=== PATIENT | male | born 1985 | race Caucasian/White ===

== ENCOUNTER 2020-12-03 11:50 | Day surgery (SDC) | payer BC, SELFPAY ==
[2020-12-03] VITALS (9 sets, daily range): BP systolic 107–130; BP diastolic 57–86; PULSE 50–68; RESP 12–19; TEMP 36.5–36.8; O2SAT 97–100; BMI 36.6
--- NOTE | ~2020-12-03 | XR_ITS ---
EXAMINATION: XR retrograde pyelogram LT EXAM DATE: 12/03/2020 13:30 INDICATION: Left ureteral stone extraction. TECHNIQUE: Fluoroscopy used during XR retrograde pyelogram LT performed by Dr. Abril Quinonez MD, urologist. The radiologist Vijay Tellez M.D. dictating this report of the image(s) available was not present for the procedure. Total fluoroscopic time of 15 seconds. The DAP for this procedure was 47 5 radcm2. A total of 58 images sent to PACS from the exam. Cine run(s) available for review. FINDINGS: Left ureter was cannulated, injected. Mild left hydroureter. Reportedly left ureteral ston e was extracted. Correlate with procedure note. IMPRESSION: Fluoroscopy used during left ureteral stone extraction. Reviewed, dictated and finalized at location A.
--- NOTE | 2020-12-03 10:30 | WPDHPUPDATE1 ---
History and Physical Update Update Date/Time: 12/03/20 10:30 History and Physical has been reviewed, including an updated exam of the patient. There are NO changes in the patient's condition. Risks, benefits, and alternatives have been discussed and questions answered. Patient agrees to proceed with procedure.
--- NOTE | 2020-12-03 12:10 | WPDANESEPPF ---
Anes - Initial Pre Proc Eval Procedure: Operation Date: 12/03/20 13:00 Proposed Procedures p Cystoscopy, Left Ureteroscopy with Stone Extraction, Possible Left Ureteral Stent Placement - Abril Quinonez MD s Possible Holmium Laser Lithotripsy - Abril Quinonez MD Date/Time: 12/03/20 12:10 Surgeon: Abril Quinonez MD Pre Op Diagnosis: left ureteral stone Patient Data Age: 35 Gender: M Height: Weight: Allergies Allergy/AdvReac Type Severity Reaction Status Date / Time No Known Allergies Allergy Mild Verified 12/03/20 11:49 Home Medications Medication Instructions Recorded Confirmed Type Flomax 12/03/20 History bupropion HCl [Wellbutrin SR] 150 mg PO DAILY 12/03/20 12/03/20 History Patient hx anesthesia problems: post op nausea/vomiting Family hx anesthesia problems: none PMFSH Past Medical History Medical History Anxiety LAYLA (obstructive sleep apnea) Rheumatoid arthritis Anes - Eval Final PreProcedure Day of Procedure 12/03/20 12:10 Patient weight: obese Heart: regular rate and rhythm Lungs: clear to auscultation Airway: Mallampati scale class II Neurological: alert and oriented Last oral intake: >/= 8 hours ASA classification: III Emergent: no Anesthetic plan: proceed Anesthesia type and monitoring: general LMA and standard monitoring Informed Consent: The patient's anesthetic plan and its attendant risks and benefits were discussed with the patient/family/POA. Questions were solicited and answers provided to the satisfaction of the patient/family/POA.
[2020-12-03] MEDS: LACTATED RINGERS 1,000 ML 30 ML IV CONT ×2 (12:12→14:15)
[2020-12-03] MEDS: ACETAMINOPHEN 500 MG TABLET 1000 MG PO (12:13)
[2020-12-03] MEDS: fentaNYL CITRATE INJ (*CRX) 100 MCG/2 ML VIAL 50 MCG IV PUSH (12:25)
[2020-12-03] MEDS: SCOPOLAMINE 1.5 MG PATCH TRANSDERM (12:26)
[2020-12-03] MEDS: ceFAZolin 2 GM/D5W 50 ML 2 GM/50 ML BAG IVPB (13:05)
[2020-12-03] MEDS: LIDOCAINE HCL 2% GEL UROJET 10 ML PKG MUCOUS MEM (13:20)
--- NOTE | 2020-12-03 13:35 | W.PM.PROC2 ---
Procedure Note - Detailed Date of Procedure 12/03/20 Pre-op Diagnosis left ureteral stone Post-op Diagnosis same Procedure Performed Cystoscopy, left ureteroscopy, stone extraction, left retrograde pyelogram Surgeon Abril Quinonez MD Anesthesia general Findings Stone removed from left distal ureter Description of Procedure Informed consent was obtained. Patient taken the operating. He was given preoperative IV antibiotics. He was just anesthesia. He was prepped draped normal sterile fashion. We inserted a 22 F scope through the urethra into the bladder inspected the bladder and there were no mucosal abnormalities. We then identified the left ureteral orifice was dilated with a 10 coaxial dilator we advanced a semi rigid scope into the distal ureter encountered the stone at the UVJ. He was grasped with Zero tip basket removed. This point a retrograde pyelogram was performed that showed minimal left hydronephrosis and efflux down the ureter into the bladder. Given that there was minimal manipulation, we elected not to place a ureteral stent. The bladder was emptied. 10cc of lidocaine were instilled patient was awakened taken PACU in stable condition Drains No Packing No Pathology yes Complications No immediate complications Condition stable Disposition PACU
[2020-12-03] MEDS: fentaNYL CITRATE INJ (*CRX) 100 MCG/2 ML VIAL 25 MCG IV PUSH ×8 (14:08→14:35)
[2020-12-03] MEDS: oxyCODONE HCL (*CRX) 5 MG TAB IR PO (15:02)
== END 2020-12-03 15:35 | disposition home or self-care (01) ==
PROVIDERS: PCP Physician Assistant; Visit Provider Urology
PROC: (CPT 52352; principal; 2020-12-03 13:00)
DX: N20.1 Calculus of ureter (principal); G47.33 Obstructive sleep apnea (adult) (pediatric); M06.9 Rheumatoid arthritis, unspecified; F41.9 Anxiety disorder, unspecified; E66.9 Obesity, unspecified; Z68.36 Body mass index [BMI] 36.0-36.9, adult
CPT/HCPCS: 52332; 52352; 74420; 82365; 88300; A9270; C1769; J0690; J1100; J2250; J2405; J2704; J3010; J7120; Q9966

== ENCOUNTER 2020-12-31 10:22 | Outpatient (CLI) | payer BC, SELFPAY ==
--- NOTE | ~2020-12-31 | XR_ITS ---
EXAMINATION: XR abdomen/kub 1V EXAM DATE: 12/31/2020 10:44 INDICATION: Left ureteral stone. Left kidney stone removed 3-4 weeks ago. TECHNIQUE: Frontal projection of the upper abdomen, frontal projection lower abdomen/pelvis for inter pretation. There is no prior study for comparison. FINDINGS: There is expected amount of colonic stool and gas. No small bowel dilation, nonobstructiv e bowel gas pattern. There are no suspicious calcifications identified. There is no organomegaly suspected. There is mild to moderate symmetric bilateral hip primary osteoarthritis. IMPRESSION: Unremarkable abdomen x-ray exam. Reviewed, dictated and finalized at location B.
--- NOTE | ~2020-12-31 | US_ITS ---
EXAMINATION: US retroperitoneal comp EXAM DATE: 12/31/2020 10:38 INDICATION: Left ureteral stone . TECHNIQUE: Multiple grayscale and Doppler images of the kidneys were obtained (by a technologist who performed the scan) and subsequently reviewed. There is no prior study for comparison. FINDINGS: Right kidney: There is normal contour and echogenicity. It measures 11.1 x 6.1 x 6.4 centimeters. T here are no focal renal lesions identified. There is no hydronephrosis. Left kidney: There is normal contour and echogenicity. It measures 10.8 x 6.4 x 5.3 centimeters. Th ere are no focal renal lesions identified. There is no hydronephrosis. Bladder unremarkable. IMPRESSION: Sonographically unremarkable kidneys. Reviewed, dictated and finalized at location B.
== END 2020-12-31 10:23 ==
PROVIDERS: Visit Provider Urology
DX: N20.1 Calculus of ureter (principal)
CPT/HCPCS: 74018; 76770

== ENCOUNTER → 2021-01-29 00:35 | Outpatient (CLI) | payer BC, SELFPAY ==
[2021-01-29 21:27] LABS: SARS-CoV-2 RNA PCR Negative
== END ==
PROVIDERS: PCP Physician Assistant; Visit Provider Surgery
DX: Z01.812 Encounter for preprocedural laboratory examination (principal); Z20.822 Contact with and (suspected) exposure to COVID-19
CPT/HCPCS: C9803; U0003; U0005

== ENCOUNTER 2021-02-02 01:31 | Day surgery (SDC) | payer BC, SELFPAY ==
[2021-01-31 09:06] VITALS: BMI 35.2
[2021-02-02 12:40] VITALS: BP 123/83; PULSE 69; RESP 20; TEMP 36.4; O2SAT 99
[2021-02-02] MEDS: ACETAMINOPHEN 500 MG TABLET 1000 MG PO (12:40)
--- NOTE | 2021-02-02 12:55 | WPDHPUPDATE1 ---
History and Physical Update Update Date/Time: 02/02/21 12:55 History and Physical has been reviewed, including an updated exam of the patient. There are NO changes in the patient's condition. Risks, benefits, and alternatives have been discussed and questions answered. Patient agrees to proceed with procedure.
[2021-02-02] MEDS: LACTATED RINGERS 1,000 ML 30 ML IV CONT ×2 (13:10→15:02)
[2021-02-02] MEDS: KETOROLAC 15 MG/ML VIAL (*BKC) IV PUSH (13:12)
--- NOTE | 2021-02-02 13:44 | WPDANESEPPF ---
Anes - Initial Pre Proc Eval Procedure: Operation Date: 02/02/21 12:30 Proposed Procedures p Repair Incarcerated Umbilical Hernia - Riley Raman MD Date/Time: 02/02/21 13:44 Surgeon: Riley Raman MD Pre Op Diagnosis: incarcerated umbilical hernia Patient Data Age: 35 Gender: M Height: 1.7 m Weight: 101.6 kg Last Vital Signs Temp 36.4 C 02/02/21 12:40 Pulse 69 02/02/21 12:40 Resp 20 02/02/21 12:40 BP 123/83 02/02/21 12:40 Pulse Ox 99 02/02/21 12:40 Allergies Allergy/AdvReac Type Severity Reaction Status Date / Time adalimumab [From Humira] AdvReac Mild Itching Verified 01/31/21 08:57 Home Medications Medication Instructions Recorded Confirmed Type bupropion HCl [Wellbutrin SR] 150 mg PO DAILY 12/03/20 02/02/21 History cetirizine 10 mg tablet 10 mg PO DAILY 01/14/21 02/02/21 History phentermine 37.5 mg capsule 37.5 mg PO DAILY 01/14/21 02/02/21 History Patient hx anesthesia problems: none Family hx anesthesia problems: none PMFSH Past Medical History Medical History Anxiety Depression LAYLA (obstructive sleep apnea) Rheumatoid arthritis Vertigo Surgical History Surgical History History of back surgery Status post ear surgery Family History Family History Father Arthritis Mother Alcoholism Hypertension Rheumatoid arthritis Lupus Sibling Lung disease Unknown Allergy Social History Social History Smoking status: Never smoker Alcohol intake: current Drinks per week: 4 Substance use: never Substance use type: does not use Living arrangements: with family Spiritual care concerns: No Anes - Eval Final PreProcedure Day of Procedure 02/02/21 13:44 Patient weight: obese Heart: regular rate and rhythm Lungs: clear to auscultation Airway: Mallampati scale class 1 Neurological: alert and oriented Last oral intake: >/= 8 hours ASA classification: III Emergent: no Anesthetic plan: proceed Anesthesia type and monitoring: general LMA and standard monitoring Informed Consent: The patient's anesthetic plan and its attendant risks and benefits were discussed with the patient/family/POA. Questions were solicited and answers provided to the satisfaction of the patient/family/POA.
[2021-02-02] MEDS: SCOPOLAMINE 1.5 MG PATCH TRANSDERM (13:52)
[2021-02-02] MEDS: ceFAZolin 2 GM/D5W 50 ML 2 GM/50 ML BAG IVPB (14:02)
[2021-02-02] MEDS: BUPIVACAINE/EPINEPHRINE 0.5% 10 ML VIAL 30 ML INFILTRATE (14:19)
--- NOTE | 2021-02-02 14:57 | W.PM.PROC2 ---
Procedure Note - Detailed Date of Procedure 02/02/21 Pre-op Diagnosis incarcerated umbilical hernia Post-op Diagnosis same Procedure Performed Repair incarcerated umbilical hernia with 6.6 cm Parietex underlay mesh Surgeon Riley Raman MD [employer] Kareen SCHUSTER Anesthesia MAC and local (0.5% Marcaine with epinephrine) Indications Patient is a 35-year-old man who has an umbilical bulge that is been tender. Was more recently particularly uncomfortable. I partially reduced it in the office. He is taken to surgery now for an incarcerated umbilical hernia. Findings Umbilical hernia with a 2 cm defect. Description of Procedure Patient was taken to surgery and IV sedation was administered. The abdomen was prepped and draped. The proposed incision was marked along the upper margin of the umbilicus. Local anesthesia was infiltrated in the area of the anticipated incision and the deeper subcutaneous tissues. Incision was made dissection through the skin was carried out. The hernia sac was easily found. It was dissected free from the surrounding subcutaneous. I dissected down to the neck of the hernia. I then dissected the hernia sac off of the umbilical skin. I dissected all around the neck of the hernia. Additional local was infiltrated into the neck of the hernia as well as the fascia around the neck. I then divided the hernia sac at the neck and excised it. Cautery was used for hemostasis. I placed a finger in the defect and checked for any adhesions. None were found. A 6.6 cm Parietex chippewa-cree was chosen. It was placed in the defect and centered so that it was symmetric. 0 Ethibond was used and cranial and caudal transfascial sutures were placed. Each of these sutures were placed in such a fashion that when tied, they would draw the edges of the hernia defect wards 1 another. This had the desired effect. I then placed a right and left lateral transfascial sutures to secure the mesh in these directions. Finally the defect was closed with a [id number] mattress suture of 0 Ethibond. This also incorporated bit of mesh. The repair looked good. I infiltrated additional local all around the site of the repair. I then sutured the umbilical skin to the fascia with 3-0 Vicryl suture. Some subcutaneous 3-0 Vicryl sutures were used to close space. 4-0 Vicryl subcuticular interrupted skin stitches were placed. Finally a running 4-0 Monocryl skin suture was placed. Wound was dressed with Exofin surgical adhesive. The patient was awakened and taken to recovery in good condition. Sponge and needle counts were correct x2. Estimated Blood Loss 5 Drains No Packing No Pathology none sent Complications No immediate complications Condition stable Disposition same day
[2021-02-02 15:02] VITALS: BP 117/67; PULSE 70; RESP 14; O2SAT 99
[2021-02-02 15:30] VITALS: BP 108/67; PULSE 63; O2SAT 99
[2021-02-02] MEDS: fentaNYL CITRATE INJ (*CRX) 100 MCG/2 ML VIAL 25 MCG IV PUSH ×4 (15:31→15:46)
[2021-02-02] MEDS: oxyCODONE HCL (*CRX) 5 MG TAB IR PO (15:57)
[2021-02-02 16:00] VITALS: BP 116/79; PULSE 62
[2021-02-02 16:30] VITALS: BP 120/81; PULSE 58
== END 2021-02-02 16:45 | disposition home or self-care (01) ==
PROVIDERS: PCP Physician Assistant; Visit Provider Surgery
PROC: (CPT 49587; principal; 2021-02-02 12:30)
DX: K42.0 Umbilical hernia with obstruction, without gangrene (principal); M06.9 Rheumatoid arthritis, unspecified; G47.33 Obstructive sleep apnea (adult) (pediatric); F41.8 Other specified anxiety disorders; E66.9 Obesity, unspecified; Z68.35 Body mass index [BMI] 35.0-35.9, adult
CPT/HCPCS: 49587; A9270; C1781; C9803; J0690; J1885; J2250; J2704; J3010; J7120; U0003; U0005

== ENCOUNTER 2021-03-01 19:34 | Emergency (ER) | payer BC, SELFPAY ==
--- NOTE | ~2021-03-01 | XR_ITS ---
XR foot RT min 3V 03/01/2021 19:59 INDICATION: Right foot pain PROCEDURE: 4 views right foot COMPARISON: No prior studies for comparison. FINDINGS: Fracture, dislocation or subluxation is not identified. Lisfranc joint intact. The soft tis sues appear within normal limits. No foreign bodies are identified. IMPRESSION: 1: NO ACUTE BONE OR JOINT ABNORMALITY IDENTIFIED. Reviewed, dictated and finalized at location A.
[2021-03-01 20:14] VITALS: BP 128/88; PULSE 98; RESP 15; TEMP 37.5; O2SAT 98
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
[2021-03-01 23:12] VITALS: BP 121/91; PULSE 86; RESP 16; O2SAT 98
== END 2021-03-01 22:56 | disposition home or self-care (01) ==
LOC: ANHED 22:48
PROVIDERS: Emergency Provider Emergency Medicine; PCP Physician Assistant
DX: S93.401A Sprain of unspecified ligament of right ankle, initial encounter (principal); F41.9 Anxiety disorder, unspecified; F32.9 Major depressive disorder, single episode, unspecified; G47.33 Obstructive sleep apnea (adult) (pediatric); M06.9 Rheumatoid arthritis, unspecified; V43.52XA Car driver injured in collision with other type car in traffic accident, initial encounter; Y92.410 Unspecified street and highway as the place of occurrence of the external cause
CPT/HCPCS: 73630; 99283

== ENCOUNTER 2021-04-04 19:11 | Emergency (ER) | payer BC, SELFPAY ==
[2021-04-04 19:19] VITALS: BP 126/90; PULSE 82; RESP 18; TEMP 36.6; O2SAT 98
--- NOTE | 2021-04-04 19:22 | ED.EAR ---
HPI - Ear Problem General Chief complaint: Ear Stated complaint: Rt Ear Time Seen by Provider: 04/04/21 19:22 Source: patient and RN notes reviewed Mode of arrival: ambulatory Limitations: no limitations History of Present Illness HPI Narrative: Riley is a 36-year-old male patient who ambulated into the [facility]. Patient states he is having ringing in his right ear. Started yesterday has gotten worse today. Patient states he was treated for a sinus infection 3 weeks ago with an antibiotic and prednisone. Patient states a month before that he was treated with all amoxicillin for sinus infection. Patient states he has a long history of sinus infections and ear infections. Patient denies any injury to the ear. Patient has taken no medicines or [id number]-xvodnbe treatment for his ringing of the ear. Patient uses Zyrtec every day. Patient states he has not been using his Flonase for the last several months. MD Complaint: other Related Data Home Medications Medication Instructions Recorded Confirmed bupropion HCl [Wellbutrin SR] 150 mg PO DAILY 12/03/20 04/04/21 cetirizine [Zyrtec] 10 mg PO DAILY 04/04/21 04/04/21 phentermine 37.5 mg PO DAILY 04/04/21 04/04/21 Allergies Allergy/AdvReac Type Severity Reaction Status Date / Time adalimumab [From Humira] AdvReac Mild Itching Verified 04/04/21 19:32 Review of Systems Review of Systems: CONSTITUTIONAL: Denies body aches, fever, chills, or sweats. EYES: Denies visual changes, redness, or discharge. ENT: Denies rhinorrhea, +Congestion, denies sore throat, or otalgia. + ringing in right ear CARDIOVASCULAR: Denies chest pain, palpitations, or edema. RESPIRATORY: Denies cough or dyspnea. GASTROINTESTINAL: Denies abdominal pain, nausea, vomiting, or diarrhea. GENITOURINARY: Denies dysuria or hematuria. SKIN: Denies rash, itching, or wounds. MUSCULOSKELETAL: Denies back pain, joint pain, or myalgia. NEUROLOGIC: Denies headache, numbness, tingling, or weakness. PSYCH: Denies depression or anxiety. [facility] Past Medical History Medical History Anxiety Depression LAYLA (obstructive sleep apnea) Rheumatoid arthritis Vertigo Surgical History Surgical History H/O umbilical hernia repair 02/02/21 Repair incarcerated umbilical hernia with 6.6 cm Parietex underlay mesh History of back surgery Status post ear surgery Family History Family History Father Arthritis Mother Alcoholism Hypertension Rheumatoid arthritis Lupus Sibling Lung disease Unknown Allergy Social History Social History Smoking status: Never smoker Alcohol intake: current Drinks per week: 4 Substance use: never Substance use type: does not use Spiritual care concerns: No Comments At time of signature, I have reviewed and agree with nursing past medical, surgical, social and family history unless otherwise noted. Please see nursing chart for further information. There is no relevant family history pertinent to the presenting complaint Exam Narrative: GENERAL: Well-appearing, well-nourished, and in no acute distress. HEAD: Normocephalic, atraumatic. EYES: EOMI. No redness or drainage. Conjunctivae normal. ENT: Mucous membranes pink and moist. clear rhinorrhea. TMs bilaterally opaque, minimal bulging, fluid-filled. Throat normal. Uvula midline. NECK: Normal AROM. Supple. No lymphadenopathy. MUSCULOSKELETAL: No bony tenderness. EXTREMITIES: Normal range of motion. No edema. SKIN: Warm, dry, no rash. Capillary refill normal. Normal skin turgor. NEURO: No focal deficits. Alert and oriented x3. Gait steady. PSYCH: Normal affect. No signs of depression or anxiety. Course Vital Signs Vital signs: Vital Signs Temperature 36.6 C 04/04/21 19:19 Pulse Ra
== END 2021-04-04 19:48 | disposition home or self-care (01) ==
PROVIDERS: Emergency Provider Nurse Practitioner Family; PCP Physician Assistant
DX: H93.11 Tinnitus, right ear (principal); H65.23 Chronic serous otitis media, bilateral; R03.0 Elevated blood-pressure reading, without diagnosis of hypertension; F41.9 Anxiety disorder, unspecified; F32.9 Major depressive disorder, single episode, unspecified; G47.33 Obstructive sleep apnea (adult) (pediatric); M06.9 Rheumatoid arthritis, unspecified; Z86.16 Personal history of COVID-19; Z98.1 Arthrodesis status
CPT/HCPCS: 99211; G0463

== ENCOUNTER 2021-04-08 13:50 | Outpatient (CLI) | payer BC, SELFPAY ==
--- NOTE | ~2021-04-08 | CT_ITS ---
EXAMINATION: CT IAC/mastoids BI wo/w con DATE: 04/08/2021 14:39 INDICATION: Sudden right-sided hearing loss. Right-sided tinnitus. TECHNIQUE: Computed tomography (CT) of the temporal bones was performed without and with 75 mL Omnipa que 350 intravenous contrast. Automated exposure control and iterative reconstruction technique were employed. The dose-length product was 620.88 mGy-cm. COMPARISON: Head CT 03/16/2018 FINDINGS: RIGHT TEMPORAL BONE: The internal auditory canal, cochlea, vestibule, semicircular canals, vestibular aqueduct, carotid ca nal, jugular bulb, facial nerve course, ossicles, Prussak space, scutum, tympanic membrane, mastoid a ir cells, and external auditory canal are normal. There is a small effusion of the petrous apex. LEFT TEMPORAL BONE: The internal auditory canal, cochlea, vestibules, semicircular canals, vestibular aqueduct, carotid c anal, jugular bulb, facial nerve course, and ossicles are normal. There is a 3 mm opacity in Prussak space. Scutum is normal. The mastoid air cells and external auditory canal are normal. IMPRESSION: 1. Normal right temporal bone. 3. 3 mm opacity in left Prussak space. No erosions of bone to suggest chronic otitis media or cholest eatoma. Reviewed, dictated and finalized at location A. IMPRESSION: 1. Normal right temporal bone. 3. 3 mm opacity in left Prussak space. No erosions of bone to suggest chronic o titis media or cholesteatoma.
== END 2021-04-08 13:51 ==
PROVIDERS: PCP Physician Assistant; Visit Provider Otolaryngology
DX: H91.21 Sudden idiopathic hearing loss, right ear (principal)
CPT/HCPCS: 70482; Q9967

== ENCOUNTER 2022-06-07 11:20 | Emergency (ER) | payer BC, SELFPAY ==
[2022-06-07] VITALS (9 sets, daily range): BP systolic 123–144; BP diastolic 82–105; PULSE 59–71; RESP 10–20; TEMP 36.1; O2SAT 95–100
--- NOTE | ~2022-06-07 | CT_ITS ---
EXAMINATION: CTA brain carotid DATE: 06/07/2022 12:47 INDICATION: Dizziness. Right neck pain. TECHNIQUE: Computed tomographic angiography (CTA) of the head was performed without and with 100 mL O mnipaque-350 intravenous contrast. CTA of the neck was performed with intravenous contrast. Automated exposure control and iterative reconstruction technique were employed. The dose-length product was 1 669.96 mGy-cm. Maximum intensity projection and volume rendered 3D-reconstructions were created by raheel panda technologist on a separate workstation. COMPARISON: Head CT 03/16/2018 FINDINGS: HEAD CTA: There is no intracranial hemorrhage, acute infarction, or abnormal intracranial mass lesion . The ventricles are normal in size. There is mild mucosal thickening in the paranasal sinuses. The m astoid air cells are normal. The orbits are normal. The vertebral arteries are codominant. There is n o significant stenosis of basilar artery or the posterior cerebral arteries. The posterior communicat ing arteries are normal. There is no significant stenosis of the intracranial internal carotid arteri es or anterior or middle cerebral arteries. Anterior communicating artery is normal. There is no aneu rysm. NECK CTA: A calcified mediastinal lymph node is consistent with old granulomatous disease. There is n o significant stenosis of the vertebral arteries. There is minimal plaque in the proximal internal ca rotid arteries. There is 0% stenosis of the proximal right internal carotid artery relative to normal distal artery lumen diameter (NASCET criteria). There is 0% stenosis of the proximal left internal c arotid artery relative to normal distal artery lumen diameter. There are changes of posterior fusion procedure at C6-C7. There is a chronic compression fracture of C7 vertebral body. There is an old fra cture of C6 spinous process. IMPRESSION: 1. Normal brain. No aneurysm or significant intracranial arterial stenosis. 2. 0% stenosis of the proximal internal carotid arteries relative to normal distal artery lumen diame ters (NASCET criteria). Reviewed, dictated and finalized at location A. [facility] IMPRESSION: 1. Normal brain. No aneurysm or significant intracranial arterial stenosis. 2. 0% stenosis of the proximal internal carotid arteries relative to normal dis betty artery lumen diameters (NASCET criteria).
--- NOTE | ~2022-06-07 | XR_ITS ---
Portable chest x-ray Comparison: 06/25/2010 Clinical History: Near syncope Findings: Lungs are clear, without focal consolidation or pleural effusion. Cardiomediastinal silho uette is stable. Cervical spine hardware is probably unchanged from prior exam. Impression: Clear lungs. Reviewed, dictated and finalized at location [] RNET RESEARCHER Impression: Clear lungs.
--- NOTE | 2022-06-07 11:23 | ECG_ITS ---
Measurements Intervals Maxwell Rate: 57 P: 52 DC: 167 QRS: -2 QRSD: 113 T: 19 QT: 400 QTc: 391 Interpretive Statements SINUS BRADYCARDIA MODERATE INTRAVENTRICULAR CONDUCTION DELAY [110+ ms QRS DURATION] MINIMAL VOLTAGE CRITERIA FOR LVH, CONSIDER NORMAL VARIANT [MEETS CRITERIA IN ONE OF: R(aVL), S(V1), R(V5), R(V5/V6)+S(V1)] NO PREVIOUS ECG AVAILABLE FOR COMPARISON Electronically Signed On 06-07-2022 13:24:13 DRILLER OPERATOR by Sandee Kelly M.D.
[2022-06-07 11:57] LABS: Basophils Percent Auto 0.8 % (0.2-1.2); Eosinophils Absolute Auto 0.1 K/mm3 (0-0.3); Eosinophils Percent Auto 1.2 % (0-4.4); Hemoglobin 15.5 g/dL (14.0-18.0); Immature Granulocyte Absolute 0.01 K/mm3 (0.00-0.031); Immature Granulocyte Percent A 0.2 % (0-0.5); Lymphocytes Absolute Auto 1.47 K/mm3 (0.9-3.2); Lymphocytes Percent Auto 28.9 % (18.3-44.2); Mean Corpuscular HGB Conc 34.4 g/dl (32-36); Mean Corpuscular Hemoglobin 31.7 pg (26-34); Mean Platelet Volume 9.3 fl (7.4-10.4); Monocytes Absolute Auto 0.5 K/mm3 (0.1-0.6); Monocytes Percent Auto 9.8 % (2.6-8.5); Neutrophils Percent Auto 59.1 % (45.5-73.1); Platelet Count Result 238 k/mm3 (150-375); Red Blood Count 4.89 M/mm3 (4.6-6.20); Red Cell Distribution Width 12.7 % (11.5-14.5); White Blood Count 5.1 K/mm3 (4.5-10.0)
--- NOTE | 2022-06-07 11:58 | ED.DIZZY ---
HPI - Dizziness General Chief Complaint: Dizziness Stated Complaint: dizzy, syncope Time Seen by Provider: 06/07/22 11:56 Source: patient Mode of arrival: ambulatory Limitations: no limitations History of Present Illness HPI Narrative: Patient is a 37-year-old male presenting for evaluation of dizziness, lightheadedness, near syncopal events. Patient states that over the past week, he has had many near syncopal events where he feels unsteady. Patient states he has not lost consciousness. He reports symptoms are worsened with going from a sitting to standing position or head movements. Patient endorses a dizziness sensation, denies a spinning sensation. He denies headache pain, vision changes, focal weakness or numbness. Patient's states that he seems to be more slow to respond to questions but denies confusion. No recent illnesses or medication changes. No fever, chills, nausea, vomiting. No recent falls or injury. Patient denies any current chest pain or abdominal pain. Patient states that the dizziness usually is worsened in the afternoons, but has been significant throughout the day today which is what prompted his visit to the emergency department. Patient denies recent COVID or influenza. Denies significant sinus congestion but endorses a history of chronic sinusitis. Denies ear pain or fullness. Related Data Home Medications Medication Instructions Recorded Confirmed bupropion HCl 150 mg tablet,12 hr 150 mg PO DAILY 12/03/20 04/04/21 sustained-release (Wellbutrin SR) cetirizine 10 mg tablet (Zyrtec) 10 mg PO DAILY 04/04/21 04/04/21 phentermine 37.5 mg tablet 37.5 mg PO DAILY 04/04/21 04/04/21 Allergies Allergy/AdvReac Type Severity Reaction Status Date / Time adalimumab [From Humira] AdvReac Mild Itching Verified 04/04/21 19:32 Review of Systems Review of Systems: CONSTITUTIONAL: Denies fever, chills, or sweats. ENT: Denies rhinorrhea, congestion, sore throat, or otalgia. CARDIOVASCULAR: Denies chest pain, palpitations, or edema. RESPIRATORY: Denies cough or dyspnea. GASTROINTESTINAL: Denies abdominal pain, nausea, vomiting, or diarrhea. GENITOURINARY: Denies dysuria or hematuria. SKIN: Denies rash or itching. MUSCULOSKELETAL: Denies back pain, joint pain, or myalgia. NEUROLOGIC: Denies headache, numbness, or weakness.Reports dizziness and lightheadedness. [facility] Past Medical History Medical History Anxiety Depression LAYLA (obstructive sleep apnea) Rheumatoid arthritis Vertigo Surgical History Surgical History H/O umbilical hernia repair 02/02/21 Repair incarcerated umbilical hernia with 6.6 cm Parietex underlay mesh History of back surgery Status post ear surgery Family History Family History Father Arthritis Mother Alcoholism Hypertension Rheumatoid arthritis Lupus Sibling Lung disease Unknown Allergy Social History Social History Smoking status: Never smoker Alcohol intake: current Drinks per week: 4 Substance use: never Substance use type: does not use Spiritual care concerns: No Exam Narrative: GENERAL: Awake, alert, conversant HEAD: Normocephalic, atraumatic. EYES: PERRLA and EOMI. ENT: Nares clear, no rhinorrhea or epistaxis. Mucous membranes moist. NECK: Supple. CHEST: No respiratory distress, breathing even and non labored HEART: Regular rate, sinus rhythm ABDOMEN:Non distended, non tender EXTREMITIES: Normal range of motion. No edema. SKIN: Warm, dry, no rash. NEURO:No focal deficits. Alert and oriented x3. Finger to nose intact bilaterally. EOMs intact without nystagmus. No facial droop/asymmetry noted bilaterally. Grimace intact. Intact sensation in face. Hearing intact bilaterally. Shoulder shrug intact. Strength 5/5 bilateral
[2022-06-07 12:08] LABS: Alanine Aminotransferase 55 U/L (6-50); Albumin Level 4.5 g/dL (3.5-5.1); Alkaline Phosphatase 80 U/L (38-126); Anion Gap 8 mmol/L (8-16); Aspartate Amino Transferase 47 U/L (17-59); Bilirubin,Total 0.5 mg/dL (0.2-1.3); Blood Urea Nitrogen 17 mg/dL (9-20); Carbon Dioxide 24 mmol/L (22-30); Chloride 108 mmol/L (98-107); Estimated CRCL calculation 123 ml/min; Estimated Glomerular Filt Rate > 60; Glucose 94 mg/dL (65-110); Potassium 3.8 mmol/L (3.4-5.0); Sodium 140 mmol/L (137-145)
[2022-06-07 12:20] LABS: Troponin I < 0.012 ng/mL (0.000-0.034)
[2022-06-07] MEDS: MECLIZINE HCL 25 MG TABLET PO (12:30)
[2022-06-07] MEDS: SODIUM CHLORIDE 0.9% IV 1,000 ML 999 ML IV CONT (12:30)
[2022-06-07 13:08] LABS: Add Urine Microscopic? NO; Appearance Urine Clear (Clear); Bilirubin Urine Negative (Negative); Blood Urine Negative (Negative); Color Urine Light Yellow (Yellow); Glucose Urine UA Negative (Negative); Ketones Urine Negative (Negative); Leukocyte Esterase Ur Negative LEU/UL (Negative); Nitrate Urine Negative (Negative); Protein Urine Negative (Negative); Urobilinogen Urine 0.2 mg/dL (<2.0)
[2022-06-07 13:29] LABS: Amphetamine Screen Urine Negative (Negative); Barbiturate Screen Urine Negative (Negative); Benzodiazepines Screen Urine Negative (Negative); Cannabinoid Screen Urine Negative (Negative); Cocaine Screen Urine Negative (Negative); Methadone Screen Urine Negative (Negative); Opiate Screen Urine Negative (Negative); Phencyclidine Screen Urine Negative (Negative)
== END 2022-06-07 14:21 | disposition home or self-care (01) ==
PROVIDERS: Emergency Medicine; Emergency Provider Emergency Medicine; PCP Physician Assistant
DX: H81.10 Benign paroxysmal vertigo, unspecified ear (principal); M06.9 Rheumatoid arthritis, unspecified; G47.33 Obstructive sleep apnea (adult) (pediatric); F41.9 Anxiety disorder, unspecified; F32.A Depression, unspecified; R00.1 Bradycardia, unspecified; I45.9 Conduction disorder, unspecified
CPT/HCPCS: 36415; 70496; 70498; 71045; 80053; 80307; 81003; 84484; 85025; 93005; 96360; 96361; 99284; A9270; J7030; Q9967

== ENCOUNTER 2022-09-26 16:29 | Outpatient (CLI) | payer BC, SELFPAY ==
--- NOTE | ~2022-09-26 | XR_ITS ---
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 TECHNIQUE: 1. Posteroanterior and lateral views of the left hand were obtained. 2. Posteroanterior and lateral views of the right hand were obtained. COMPARISON: None. FINDINGS: Normal alignment at the bilateral hands and wrists. No fracture. Joint spaces are normal throughout. No erosions to suggest inflammatory arthritis. Unchanged tiny metallic foreign bodies at the palmar a spect of the left inner eminence and at the soft tissues dorsal to the neck of the right second middl e phalanx. Soft tissues are otherwise unremarkable. IMPRESSION: 1. Unchanged tiny metallic foreign body at the bilateral hands. No osseous abnormality at either hand . Reviewed, dictated and finalized at location A. IMPRESSION: 1. Unchanged tiny metallic foreign body at the bilateral hands. No osseous abno rmality at either hand.
--- NOTE | ~2022-09-26 | XR_ITS ---
EXAMINATION: XR foot LT 2V DATE: 09/26/2022 17:33 INDICATION: Undifferentiated inflammatory arthritis. TECHNIQUE: 2 views of left foot were obtained. COMPARISON: None. FINDINGS: Bone alignment is normal. No fracture. There is mild osteoarthritis of first metatarsophala ngeal joint. IMPRESSION: 1. Mild osteoarthritis of first metatarsophalangeal joint. Reviewed, dictated and finalized at location A.
--- NOTE | ~2022-09-26 | XR_ITS ---
EXAMINATION: XR sacroiliac joints min 3V DATE: 09/26/2022 17:33 INDICATION: Psoriatic arthritis. TECHNIQUE: 3 views of the sacroiliac joints were obtained. COMPARISON: None. FINDINGS: Bone alignment is normal. No fracture. The sacroiliac joints are normal. There is mild left hip osteoarthritis. IMPRESSION: 1. Normal sacroiliac joints. Reviewed, dictated and finalized at location A.
== END 2022-09-26 16:30 ==
LOC: MICIMG 16:32
PROVIDERS: PCP Physician Assistant; Visit Provider Physician Assistant
DX: L40.50 Arthropathic psoriasis, unspecified (principal); Z79.899 Other long term (current) drug therapy; M25.50 Pain in unspecified joint; M19.072 Primary osteoarthritis, left ankle and foot; S60.552A Superficial foreign body of left hand, initial encounter; S60.551A Superficial foreign body of right hand, initial encounter; X58.XXXA Exposure to other specified factors, initial encounter
CPT/HCPCS: 72202; 73120; 73620

== ENCOUNTER 2023-02-20 06:42 | Emergency (ER) | payer BC, SELFPAY ==
--- NOTE | ~2023-02-20 | CT_ITS ---
EXAMINATION: CT abdomen pelvis w con DATE: 02/20/2023 11:41 INDICATION: Abdominal pain and diarrhea TECHNIQUE: Computed tomography (CT) of the abdomen and pelvis was performed with 100 mL Omnipaque-350 intravenous contrast. Automated exposure control and iterative reconstruction technique were employe d. The dose-length product was 1029.77 mGy-cm. COMPARISON: None FINDINGS: Mild dependent atelectasis in bilateral lower lobes. Large calcified AP window lymph nodes and a few splenic calcific lesions consistent with old granulomatous disease. Heart size is normal. No pericard ial or pleural effusion. Liver, gallbladder, pancreas, bilateral adrenal glands and kidneys are mandie l. Bladder is normal. No bowel obstruction. Normal appendix. There is some fatty infiltration of the wall of the distal ileum which could be related to body habitus however can also be seen as a respons e to chronic inflammation such as in the setting of Crohn's disease. Umbilical hernia mesh repair. Co uple small bone islands at the right femoral head. IMPRESSION: 1. No acute intra-abdominal/pelvic process. 2. Extensive fatty infiltration of the wall of the distal ileum which could be related to body habitu s but could also be seen in the setting of chronic Crohn's disease. 2. Status post umbilical hernia mesh repair. Reviewed, dictated and finalized at location A. IMPRESSION: 1. No acute intra-abdominal/pelvic process. 2. Extensive fatty infiltration of the wall of the distal ileum which could be related to body habitus but could also be seen in the setting of chronic Crohn' s disease. 2. Status post umbilical hernia mesh repair.
[2023-02-20 06:47] VITALS: BP 132/100; PULSE 73; RESP 14; TEMP 37; O2SAT 100
[2023-02-20 09:45] LABS: Basophils Percent Auto 0.6 % (0.2-1.2); Eosinophils Absolute Auto 0.1 K/mm3 (0-0.3); Eosinophils Percent Auto 0.9 % (0-4.4); Hematocrit 48.2 % (42.0-52.0); Hemoglobin 16.1 g/dL (14.0-18.0); Immature Granulocyte Absolute 0.03 K/mm3 (0.00-0.031); Immature Granulocyte Percent A 0.6 % (0-0.5); Lymphocytes Absolute Auto 1.39 K/mm3 (0.9-3.2); Lymphocytes Percent Auto 25.6 % (18.3-44.2); Mean Corpuscular HGB Conc 33.4 g/dl (32-36); Mean Corpuscular Hemoglobin 32.5 pg (26-34); Mean Corpuscular Volume 97.2 fl (80-100); Mean Platelet Volume 8.8 fl (7.4-10.4); Monocytes Absolute Auto 0.8 K/mm3 (0.1-0.6); Monocytes Percent Auto 15.5 % (2.6-8.5); Neutrophils Absolute Auto 3.1 K/mm3 (1.3-6.7); Neutrophils Percent Auto 56.8 % (45.5-73.1); Platelet Count Result 262 k/mm3 (150-375); Red Blood Count 4.96 M/mm3 (4.6-6.20); Red Cell Distribution Width 13.3 % (11.5-14.5); White Blood Count 5.4 K/mm3 (4.5-10.0)
[2023-02-20 09:54] LABS: Appearance Urine Clear (Clear); Bilirubin Urine Negative (Negative); Blood Urine Negative (Negative); Color Urine Dark Yellow (Yellow); Glucose Urine UA Negative (Negative); Ketones Urine Trace mg/dL (Negative); Leukocyte Esterase Ur Negative LEU/UL (Negative); Nitrate Urine Negative (Negative); Protein Urine Negative (Negative); Specific Grav Ur 1.024 (1.001-1.035); Urobilinogen Urine 0.2 mg/dL (<2.0)
[2023-02-20 10:00] LABS: Add Urine Microscopic? NO
--- NOTE | 2023-02-20 10:32 | ED.ABDPAIN ---
HPI - Abdominal Pain General Chief Complaint: Abdominal Pain Stated Complaint: abd pain Time Seen by Provider: 02/20/23 09:10 Source: patient Mode of arrival: ambulatory Limitations: no limitations History of Present Illness HPI narrative: This is a 37-year-old male that presents to the emergency department for abdominal pain present over the last week. Associated with diarrhea. Reports initially he was having some non-formed stools. His doctor told him to take some laxatives. Now his stool is watery. He has had associated sharp abdominal pain. As well as some nausea. Denies fever, vomiting, hematochezia, or melena. Related Data Home Medications Medication Instructions Recorded Confirmed bupropion HCl 150 mg tablet,12 hr 150 mg PO DAILY 12/03/20 04/04/21 sustained-release (Wellbutrin SR) cetirizine 10 mg tablet (Zyrtec) 10 mg PO DAILY 04/04/21 04/04/21 phentermine 37.5 mg tablet 37.5 mg PO DAILY 04/04/21 04/04/21 Allergies Allergy/AdvReac Type Severity Reaction Status Date / Time adalimumab [From Humira] AdvReac Mild Itching Verified 04/04/21 19:32 Review of Systems Review of Systems: CONSTITUTIONAL: Denies fever GASTROINTESTINAL: Reports abdominal pain, nausea, and diarrhea. Denies vomiting GENITOURINARY: Denies dysuria All systems reviewed & are unremarkable except as noted in HPI and below PMFSH Past Medical History Medical History Anxiety Depression LAYLA (obstructive sleep apnea) Rheumatoid arthritis Vertigo Surgical History Surgical History H/O umbilical hernia repair 02/02/21 Repair incarcerated umbilical hernia with 6.6 cm Parietex underlay mesh History of back surgery Status post ear surgery Family History Family History Father Arthritis Mother Alcoholism Hypertension Rheumatoid arthritis Lupus Sibling Lung disease Unknown Allergy Social History Social History Smoking status: Never smoker Alcohol intake: current Drinks per week: 4 Substance use: never Substance use type: does not use Living arrangements: with family Spiritual care concerns: No Exam Narrative: GENERAL: Well-appearing, well-nourished, and in no acute distress. HEAD: Normocephalic, atraumatic. EYES: EOMI. ENT: Mucous membranes moist. Oropharynx without tonsillar hypertrophy exudate or other lesions. CHEST: Clear to auscultation. No respiratory distress. No wheezes rales or rhonchi HEART: Regular rate and rhythm. No murmur heard. Normal peripheral pulses. ABDOMEN: Soft, nondistended, normal active bowel sounds. Mild tenderness to palpation throughout the upper abdomen, without guarding EXTREMITIES: Normal range of motion. No edema. SKIN: Warm, dry, no rash. NEURO: No focal deficits. Alert and oriented x3. PSYCH: Normal mood and affect Course Course Emergency Course: Patient was updated on work-up and agrees with plan of care Vital Signs Vital signs: Vital Signs Temperature 98.6 F 02/20/23 06:47 Pulse Rate 73 02/20/23 06:47 Respiratory Rate 14 02/20/23 06:47 Blood Pressure 132/100 H 02/20/23 06:47 Pulse Oximetry 100 02/20/23 06:47 Oxygen Delivery Room Air 02/20/23 06:47 Temperature 98.2 F 02/20/23 11:25 Pulse Rate 74 02/20/23 12:20 Respiratory Rate 16 02/20/23 12:20 Blood Pressure 143/90 H 02/20/23 12:20 Pulse Oximetry 100 02/20/23 12:20 Oxygen Delivery Room Air 02/20/23 06:47 MDM - Abdominal Pain MDM Narrative Medical decision making narrative: Patient presents to the emergency department for abdominal discomfort and diarrhea. Was initially having some non-formed stools. Was instructed to take a laxative. Since he has been having watery diarrhea. He is afebrile and nontoxic-appearing. He denies any himanshu
[2023-02-20 10:59] LABS: Alanine Aminotransferase 62 U/L (6-50); Albumin Level 4.4 g/dL (3.5-5.1); Alkaline Phosphatase 63 U/L (38-126); Anion Gap 5 mmol/L (8-16); Aspartate Amino Transferase 46 U/L (17-59); Bilirubin,Total 0.5 mg/dL (0.2-1.3); Blood Urea Nitrogen 16 mg/dL (9-20); Calcium 9.1 mg/dL (8.4-10.2); Carbon Dioxide 30 mmol/L (22-30); Chloride 103 mmol/L (98-107); Estimated CRCL calculation 93 ml/min; Estimated Glomerular Filt Rate > 60; Glucose 100 mg/dL (65-110); Lipase 33 U/L (23-300); Potassium 4.3 mmol/L (3.4-5.0); Sodium 138 mmol/L (137-145)
[2023-02-20 11:25] VITALS: BP 140/89; PULSE 78; RESP 16; TEMP 36.8; O2SAT 100
[2023-02-20 12:20] VITALS: BP 143/90; PULSE 74; RESP 16; O2SAT 100
== END 2023-02-20 12:53 | disposition home or self-care (01) ==
PROVIDERS: Emergency Provider Physician Assistant; PCP Physician Assistant
DX: R19.7 Diarrhea, unspecified (principal); G47.33 Obstructive sleep apnea (adult) (pediatric); M06.9 Rheumatoid arthritis, unspecified; F32.A Depression, unspecified; F41.9 Anxiety disorder, unspecified
CPT/HCPCS: 36415; 74177; 80053; 81003; 83690; 85025; 99284; Q9967

== ENCOUNTER 2023-03-03 07:47 | Emergency (ER) | payer BC, SELFPAY ==
--- NOTE | ~2023-03-03 | XR_ITS ---
XR foot LT min 3V DATE: 03/03/2023 08:11 INDICATION: Injury. Anterior first tarsal and metatarsal pain TECHNIQUE: 4 views of left foot COMPARISON: September 26, 2022 left foot FINDINGS: There is mild osteoarthritis at the first metatarsophalangeal joint. No fracture, dislocation, periosteal reaction or bone destruction or erosive change is detected. IMPRESSION: Mild osteoarthritis at first metatarsophalangeal joint Reviewed, dictated and finalized at location A.
[2023-03-03 07:49] VITALS: BP 125/84; PULSE 59; RESP 16; TEMP 36.5; O2SAT 97
[2023-03-03] MEDS: HYDROcodone/acetaminophen (*CRX) 5-325 MG TABLET 1 TAB PO (09:07)
--- NOTE | 2023-03-03 09:45 | ED.LOWEXIN ---
HPI - Extremity Injury (Lower) General Chief Complaint: Extremity Injury, Lower Stated Complaint: left foot injury Time Seen by Provider: 03/03/23 08:48 History of Present Illness HPI Narrative: Patient is a 37-year-old male who presents ER with left foot pain. Patient was in his garage when he accidentally knocked a car battery onto the top of his foot. He had sudden onset pain but was able to ambulate last night. He has placed ice on it and elevate his leg. Swelling is not present but he is having continued pain and has an abrasion noted. No numbness or tingling. He has pain with bearing weight now. Related Data Home Medications Medication Instructions Recorded Confirmed bupropion HCl 150 mg tablet,12 hr 150 mg PO DAILY 12/03/20 04/04/21 sustained-release (Wellbutrin SR) cetirizine 10 mg tablet (Zyrtec) 10 mg PO DAILY 04/04/21 04/04/21 phentermine 37.5 mg tablet 37.5 mg PO DAILY 04/04/21 04/04/21 Allergies Allergy/AdvReac Type Severity Reaction Status Date / Time adalimumab [From Humira] AdvReac Mild Itching Verified 03/03/23 07:54 Review of Systems Musculoskeletal: Musculoskeletal: Denies arthralgias and Denies joint swelling Comments: Left foot pain Integumentary/Breasts: Skin/Breast: Denies rash Comments: Skin abrasion to the dorsum of the foot, left side. Neurologic: Denies focal weakness and Denies numbness PMFSH Past Medical History Medical History Anxiety Depression LAYLA (obstructive sleep apnea) Rheumatoid arthritis Vertigo Surgical History Surgical History H/O umbilical hernia repair 02/02/21 Repair incarcerated umbilical hernia with 6.6 cm Parietex underlay mesh History of back surgery Status post ear surgery Family History Family History Father Arthritis Mother Alcoholism Hypertension Rheumatoid arthritis Lupus Sibling Lung disease Unknown Allergy Social History Social History Smoking status: Never smoker Alcohol intake: current Drinks per week: 4 Substance use: never Substance use type: does not use Living arrangements: with family Spiritual care concerns: No Exam Narrative: GENERAL: Well-appearing, well-nourished, and in no acute distress. HEAD: Normocephalic, atraumatic. HEART: Regular rate and rhythm. Normal peripheral pulses. EXTREMITIES: Normal range of motion. Tender palpation dorsum of the left foot with abrasion. No numbness or tingling. Normal dorsalis pedis pulse. SKIN: Warm, dry, no rash. NEURO: Alert and oriented x3. PSYCH: Normal mood and affect. Course Vital Signs Vital signs: Vital Signs Temperature 97.7 F 03/03/23 07:49 Pulse Rate 59 L 03/03/23 07:49 Respiratory Rate 16 03/03/23 07:49 Blood Pressure 125/84 03/03/23 07:49 Pulse Oximetry 97 03/03/23 07:49 Oxygen Delivery Room Air 03/03/23 07:49 Temperature 97.7 F 03/03/23 07:49 Pulse Rate 59 L 03/03/23 07:49 Respiratory Rate 16 03/03/23 10:07 Blood Pressure 125/84 03/03/23 07:49 Pulse Oximetry 97 03/03/23 07:49 Oxygen Delivery Room Air 03/03/23 07:49 MDM - Extremity Injury (Lower) Imaging Data Radiologist's impression: ITS Impressions Foot X-Ray 03/03/23 08:53 IMPRESSION: Mild osteoarthritis at first metatarsophalangeal joint Discharge Plan Discharge Clinical Impression: Contusion of foot Patient Disposition: Home, Self-Care Condition: Stable Instructions: Foot Contusion (ED) Additional Instructions: There is no evidence of fracture on your x-ray. Continue to rest and elevate your foot. Take anti-inflammatory medication as well as some oral narcotic to help with your discomfort. You are being placed in a postop shoe for comfort. Follow-up with your
[2023-03-03 10:07] VITALS: RESP 16
== END 2023-03-03 10:09 | disposition home or self-care (01) ==
PROVIDERS: Emergency Provider Emergency Medicine; PCP Physician Assistant
DX: S90.32XA Contusion of left foot, initial encounter (principal); F41.9 Anxiety disorder, unspecified; F32.A Depression, unspecified; W22.8XXA Striking against or struck by other objects, initial encounter; Y92.008 Other place in unspecified non-institutional (private) residence as the place of occurrence of the external cause
CPT/HCPCS: 73630; 99283; A9270

== ENCOUNTER 2023-10-31 13:09 | Outpatient (CLI) | payer BC, SELFPAY ==
--- NOTE | ~2023-10-31 | XR_ITS ---
EXAMINATION: XR lumbar spine 2-3V, XR sacroiliac joints min 3V DATE: 10/31/2023 13:33 INDICATION: Chronic low back pain TECHNIQUE: 1. AP, lateral and coned-down lateral lumbosacral views of the lumbar spine were obtained. 2. AP and left and right oblique views of the bilateral sacroiliac joints were obtained. COMPARISON: CT abdomen pelvis date FINDINGS: Alignment is normal. Vertebral body and disc heights are normal. There is multilevel mild lumbar face t osteoarthritis. Mild bilateral hip osteoarthritis. Mild bilateral sacroiliac osteoarthritis with no evident erosions to suggest inflammatory sacroiliitis. IMPRESSION: 1. Mild polyarticular osteoarthritis at the lumbar facet and bilateral hip and sacroiliac joints. Reviewed, dictated and finalized at location A. IMPRESSION: 1. Mild polyarticular osteoarthritis at the lumbar facet and bilateral hip and sacroiliac joints.
== END 2023-10-31 13:10 | disposition home or self-care (01) ==
LOC: ANHIMG 13:12
PROVIDERS: PCP Physician Assistant; Visit Provider Physician Assistant
DX: M54.50 Low back pain, unspecified (principal); G89.29 Other chronic pain; M53.3 Sacrococcygeal disorders, not elsewhere classified; M16.0 Bilateral primary osteoarthritis of hip
CPT/HCPCS: 72100; 72202

== ENCOUNTER 2024-03-08 08:09 | Outpatient (CLI) | payer BC, SELFPAY ==
--- NOTE | ~2024-03-08 | MR_ITS ---
EXAMINATION: MR shoulder RT wo con DATE: 03/08/2024 08:54 INDICATION: Right shoulder pain post pulling injury 2 months prior TECHNIQUE: Magnetic resonance imaging (MRI) of the right shoulder was performed without intravenous c ontrast. Sequences included axial PD-weighted FS FSE, coronal oblique PD-weighted FS FSE, coronal obl ique T2-weighted FS FSE, sagittal PD-weighted FS FSE, and sagittal T1-weighted SE. COMPARISON: Radiograph dated 01/22/2024 FINDINGS: Coracoacromial arch: The acromion undersurface is convex in morphology (type IV). The coracoacromial ligament is normal. M ild acromioclavicular osteoarthritis. There is heterotopic ossification along the coracoclavicular li gaments consistent with sequela of chronic sprain in the setting of acromioclavicular joint separatio n. Rotator cuff: Mild tendinopathy of the conjoined portion of the supraspinatus and infraspinatus tendons with tiny p artial-thickness intrasubstance tear extending 6 mm AP along the greater tuberosity footplate of the tendon and involving less than one third of the tendon thickness. The teres minor tendon is normal. M ild to moderate subscapularis tendinopathy with mild partial tear at the superolateral margin of the lesser tuberosity footplate of the tendon. Normal rotator cuff muscle bulk and signal. Biceps tendon, glenoid labrum and glenohumeral cartilage: Mild tendinopathy and longitudinal split tear of the intra-articular portion of the long head biceps tendon which begins with a tendon is partially subluxed across the medial rim of the cephalad aspect of the intertubercular groove and across the subscapularis tear defect. There is an associated superi or, anterior to posterior tear of the glenoid labrum (SLAP tear) of the 11:00-12:00 position of the p osterior superior glenoid labrum. There are couple small para labral cysts measuring 12 x 2 x 7 mm at the 12:00 position of the superior rim of the glenoid and measuring 7 x 5 x 7 mm at the 11:00 positi on of the glenoid at the spinal glenoid notch. Fluid: Physiologic amount of fluid in the glenohumeral joint and biceps tendon sheath. No loose osteochondr al bodies. No abnormal fluid signal in the subacromial/subdeltoid bursa to suggest bursitis. Bones: Normal marrow signal with no edema, fracture or abnormal marrow replacing process. IMPRESSION: 1. SLAP tear at the posterior superior glenoid labrum with a couple small para labral cysts along the superior and posterior superior glenoid. 2. Mild tendinopathy with small tear at the superolateral margin of the lesser tuberosity footplate o f the subscapularis tendon. 3. Mild tendinopathy of the conjoined supraspinatus and infraspinatus tendons with tiny intrasubstanc e tear along the greater tuberosity footplate. 4. Mild tendinopathy and longitudinal split tearing of the intra-articular long head biceps tendon. 5. Mild acromioclavicular osteoarthritis with heterotopic ossification at the coracoclavicular ligame nt consistent with chronic sprain related to an earlier acromioclavicular joint separation. Reviewed, dictated and finalized at location A. IMPRESSION: 1. SLAP tear at the posterior superior glenoid labrum with a couple small para labral cysts along the superior and posterior superior glenoid. 2. Mild tendinopathy with small tear at the superolateral margin of the lesser tuberosity footplate of the subscapularis tendon. 3. Mild tendinopathy of the conjoined supraspinatus and infraspinatus tendons w ith tiny intrasubstance tear along the greater tuberosity footplate. 4. Mild tendinopathy and longitudinal split tearing of the intra-articular long head biceps tendon. 5. Mild acromioclavicular osteoarthritis with heterotopic ossification at the c oracoclavicular ligament consistent with chronic sp
== END 2024-03-08 08:10 | disposition home or self-care (01) ==
LOC: MICIMG 08:09
PROVIDERS: PCP Physician Assistant; Visit Provider Nurse Practitioner Family
DX: S43.431A Superior glenoid labrum lesion of right shoulder, initial encounter (principal); S46.891A Other injury of other muscles, fascia and tendons at shoulder and upper arm level, right arm, initial encounter; X58.XXXA Exposure to other specified factors, initial encounter; M25.811 Other specified joint disorders, right shoulder; M19.011 Primary osteoarthritis, right shoulder
CPT/HCPCS: 73221

== ENCOUNTER 2024-04-17 09:55 | Outpatient (CLI) | payer BC, SELFPAY ==
--- NOTE | 2024-04-28 13:30 | P.SLEEP_ITS ---
Sleep Study - Home Unattended Date of Study: 04/17/24 Ordering Provider: Joie Whitney, ALINE Interpreting Provider: Veronica Hurt, DO Home Sleep Study Type: Watch PAT Height: 1.7 m Weight: 106.594 kg Body Mass Index: 36.8 Neck Circumference (inches): 18 [place]: 4 Reason for Sleep Study Snoring, daytime hypersomnia Sleep History The patient is a 39-year-old male that had a sleep study ordered by his primary care for evaluation of sleep apnea. The patient admits to loud snoring, excessive daytime sleepiness, breathing interruptions during sleep, trouble falling asleep and maintaining sleep as well as abnormal behaviors during sleep. The patient admits to having difficulty falling back asleep if he wakes up during the night. He denies taking any hypnotics her sedatives. He does feel anxious about sleep. He admits to feeling tired or fatigued during the day. He states that he feels unrefreshed when he wakes up in the morning. He denies having the urge to fall asleep during the day. He denies feeling drowsy while driving. He does admit to choking or gasping during the night. He does have trouble breathing while on his back. He does wake up in the morning with a headache. He does admit to having a rotary drier feeder sore mouth/ throat in the morning. He denies nocturnal heartburn. He denies nocturia. He denies sleep paralysis, cataplexy and hypnagogic / hypnopompic hallucinations. He does admit to clenching and grinding his teeth. He denies kicking or jerking his legs excessively. He does have a restless feeling in his legs and he does have the urge to move his legs. The restless feeling gets better with activities and is worse with rest. The leg restlessness is worse in the evening and it does cause a disturbance in his sleep. He goes to bed at 10:00 p.m. on work days and at 11:00 p.m. on his days off. It takes him 90 minutes to fall asleep on work days and 60 minutes to fall asleep on his days off. He typically gets 5 hours of sleep on work days and 6 hours of sleep on his days off. His sleep is not restorative on his days off. He denies taking any plane naps. He does act out his dreams and he has sleepwalked as an adult. He consumes 3-4 caffeinated beverages per day. He consumes more than 3 alcoholic beverages 1-2 times per week. He denies tobacco use. He denies exercising regularly. [facility] Past Medical History Medical History Abdominal pain Anxiety Chest tightness Constipation Cough Depression History of nephrolithotomy with removal of calculi 2020 Kidney stones LAYLA (obstructive sleep apnea) Psoriasis Rheumatoid arthritis Right shoulder injury Right shoulder pain Rotator cuff tendinitis SLAP (superior glenoid labrum lesion) Subacromial bursitis Vertigo Surgical History Surgical History H/O umbilical hernia repair 02/02/21 Repair incarcerated umbilical hernia with 6.6 cm Parietex underlay mesh History of back surgery cervical fusion of [id number] Status post ear surgery Family History Family History Father Arthritis Mother Alcoholism Hypertension Rheumatoid arthritis Lupus Sibling Lung disease Unknown Allergy Social History Social History Smoking status: Never smoker Alcohol intake: current Drinks per week: 4 Substance use: never Substance use type: does not use Living arrangements: with family Occupation/Education: occupation 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- [employer] Gender identity (if verbalized by the patient): Male Spiritual care concerns: No Medications Home Medications Medication Instructions Recorded Confirmed Type bupropion HCl 150 mg tablet,12 hr 150 mg PO DAILY 12/03/20 04/04/21 History sustained-release (Wellbutrin SR) cetirizine 10 mg tablet (Zyrtec) 10 mg PO DAILY 04/04/21 04/04/21 History phentermine 37.5 mg tablet 37.5 mg PO DAILY 04/04/21 04/04/21 History meclizine 25 mg tablet 25 mg PO BID PRN dizziness 5 days 06/07/22 Rx #20 tabs ibuprofen 400 mg tablet 400 mg PO TID #14 tabs 03/03/23 Rx oxycodone-acetaminophen 5 mg-325 1 tablet PO Q6H PRN pain #10 tabs 03/03/23 Rx mg tablet (Percocet) Sleep Procedure The sleep study was completed using [employer] a technically adequate device with seven channels: peripheral arterial tone, actigraphy, body position, snore, respiratory movement, pulse oximetry, sleep staging, and heart rate. Prior to using the device, the patient received verbal and written instructions for its application and was provided with the help desk phone number for additional telephonic instruction with 24-hour availability of qualified personnel to answer questions. The study was scored using CMS guidelines. Sleep Architecture The total recording time is 7 hrs, 24 min. The total sleep time is 6 hrs, 47 min. Sleep latency is 17 minutes. REM latency is minutes. The patient had 4 episodes of waking. Sleep architecture shows % deep sleep, % light sleep, and (as % Total Sleep Time) showed NREM (Light %; Deep %), and a % stage REM. The patient spent 75.6% of total sleep time in the supine position. Sleep efficiency was 91.67. Respiratory Analysis The overall AHI (pAHI 4%:) is 33.6. The central AHI is 11.4. The AHI was N/A in NREM and N/A in REM sleep. The AHI was 36.6 in Supine and 24.2 in Non-supine sleep. Percent of Enrique Farley respirations is 0.0. Oximetry Data The oxygen desaturation index (STEPHEN 4%:) is 33.1. The mean saturation is 92%, and the lowest saturation is 60%. Time spent with saturation < 88% is 21.2 minutes. Snoring Profile Snoring average intensity is 41 dB. The patient snored above 45 decibels for 40.0 minutes, 9.8% of sleep time. Cardiac Profile The average pulse rate is 60 beats per minutes. The lowest pulse rate is 43 bpm. The highest pulse rate reported is 106 bpm. Atrial fibrillation was not detected. Premature beats occur <0.1 per minute. Assessment and Plan Assessment and Plan (1) LAYLA (obstructive sleep apnea): Code(s): G47.33 - Obstructive sleep apnea (adult) (pediatric) Status: Acute Assessment and Plan: The patient had an overall AHI of 33.6 with desaturation down to 60%. This is consistent with severe sleep apnea. The patient had a central apnea index of 11.4 which is elevated (normal < 5). Due to the severity of the patient's sleep apnea as well as the elevated central apnea index, the patient is not a candidate for AutoPAP. AutoPAP can increase the frequency and severity of central apneas. I recommend the patient have a CPAP titration study with the use of a hypnotic (Lunesta 2-3 mg or Ambien 5-10 mg) to ensure we obtain enough sleep data and find an optimal pressure. The patient needs to have an echocardiogram done to rule out cardiogenic causes for elevated central apnea index. The patient's sleep history is highly suggestive of Restless Leg Syndrome. I recommend that the patient have a serum ferritin drawn for evaluation of iron deficiency anemia. If the patient has a serum ferritin less than 75 ng/mL, I recommend starting a daily iron supplement and a Vitamin C supplement for better absorption. If the serum ferritin is greater than 75 ng/mL, I recommend starting a dopamine agonist and titrating the dose until symptoms resolve. There are nonpharmacological methods to treat limb movements including daily exercise, stretching calf muscles before bed, avoiding excessive amounts of caffeine and alcohol, vitamin B supplementation, magnesium lotion massaged into legs before bed, and use of a weighted blanket. The patient mentioned acting out his dreams in his sleep history. Further evaluation needs to be done to see if his clinical history is suggestive of REM Behavioral Disorder. Data The data obtained during this sleep study is adequate for interpretation. Certification This sleep study has been reviewed by a board certified sleep medicine physician.
[2024-04-28 13:31] VITALS: BMI 36.8
== END 2024-04-24 12:26 | disposition home or self-care (01) ==
LOC: ANHCSM 09:58
PROVIDERS: PCP Physician Assistant; Visit Provider Physician Assistant
DX: G47.30 Sleep apnea, unspecified (principal); G47.33 Obstructive sleep apnea (adult) (pediatric)
CPT/HCPCS: 95800

== ENCOUNTER 2024-05-21 09:33 | Outpatient (CLI) | payer BC, SELFPAY ==
--- NOTE | 2024-05-21 | ECHO_ITS ---
Patient Info Name: Riley Tesfaye Age: 39 years : 1985 Gender: Male Ht: 67 in Wt: 235 lbs BSA: 2.29 m2 HR: 59 bpm BP: 134 / 87 mmHg Heart Rhythm: Sinus Rhythm Technical Quality: Good Exam Date: 05/21/2024 10:05 AM Exam Location: Echo Lab Patient Status: Outpatient Admit Date: 05/21/2024 Staff Ordering Physician: DevonteJoie PA-C [employer] Director: Graham Arrington RDCS Attending Provider: RadhaJoie PA-C Exam Type: CA echo doppler color flow Study Info Indications - cetral sleep apnea syndrom Complete two-dimensional, color flow and Doppler transthoracic echocardiogram is performed. Summary 1. Complete two-dimensional, color flow and Doppler transthoracic echocardiogram is performed. 2. Left ventricular chamber dimension is moderately enlarged. 3. Left ventricular systolic function is normal, estimated at 60-65%. 4. The left ventricular diastolic function is normal. 5. E/e' 9 is minimally elevated. 6. There is trace mitral valve regurgitation. 7. No pulmonary hypertension, estimated pulmonary arterial systolic pressure is 16 mmHg. 8. There is mild pulmonic regurgitation. Left Ventricle E/e' 9 is minimally elevated. Left ventricular chamber dimension is moderately enlarged. Left ventricular systolic function is normal, estimated at 60-65%. The left ventricular diastolic function is normal. Right Ventricle Right ventricular systolic function is normal and with normal TAPSE 2.5 cm. Right ventricular chamber dimension is normal. Left Atria Left atrial chamber dimension is normal. Right Atria Right atrial chamber dimension is normal. Aortic Valve The aortic valve is trileaflet. There is no aortic valve stenosis. There is no aortic valve regurgitation. Pulmonic Valve There is mild pulmonic regurgitation. Mitral Valve There is no mitral valve stenosis. There is trace mitral valve regurgitation. Tricuspid Valve There is no tricuspid valve regurgitation. No pulmonary hypertension, estimated pulmonary arterial systolic pressure is 16 mmHg. Pericardium/Pleural There is no pericardial effusion. Inferior Vena Cava Normal inferior vena cava with >50% collapse upon inspiration consistent with normal right atrial pressure, 5 mmHg. Aorta The aortic root size at the sinus of Valsalva is normal. Left Ventricular Outflow Tract Name Value Normal LVOT 2D LVOT Diameter 2.2 cm LVOT Doppler LVOT Peak Gradient 3 mmHg LVOT Mean Gradient 2 mmHg LVOT VTI 20 cm LVOT VTI/AV VTI Ratio 0.8 LVOT Stroke Volume 74 ml LVOT CO 5.1 l/min LVOT CI 2.2 l/min/m2 Pulmonic Valve Name Value Normal PV Regurgitation Doppler UT Peak End Diastolic Velocity 139 cm/s Mitral Valve Name Value Normal MV Doppler MV Decel [place] 447 cm/s2 MV PHT 57 ms MV Area (PHT) 3.8 cm2 4.0-5.0 MV Diastolic Function MV E Peak Velocity 88 cm/s MV A Peak Velocity 52 cm/s MV E/A 1.7 MV Decel Time 198 ms MV Annular TDI MV E/e' (Septal) 9.8 <=8.0 MV E/e' (Lateral) 8.5 <=8.0 MV E/e' (Average) 9.2 Tricuspid Valve Name Value Normal TV Regurgitation Doppler TR Peak Velocity 163 cm/s TR Peak Gradient 11 mmHg Estimated PAP/RSVP RA Pressure 5 mmHg <=5 PA Systolic Pressure 16 mmHg <36 RV Systolic Pressure 16 mmHg <36 Aortic Valve Name Value Normal AV Doppler AV Peak Velocity 128 cm/s AV Peak Gradient 7 mmHg AV Mean Gradient 3 mmHg AV VTI 26 cm AV Area (Cont Eq VTI) 2.8 cm2 >=3.0 AV Area (Cont Eq Alex) 2.7 cm2 AV Regurgitation 2D LVOT Area 3.8 cm2 Ventricles Name Value Normal LV Dimensions 2D/MM IVS Diastolic Thickness (2D) 0.9 cm 0.6-1.0 LVID Diastole (2D) 6.2 cm 4.2-5.8 LVIW Diastolic Thickness (2D) 0.9 cm 0.6-1.0 LVID Systole (2D) 3.8 cm 2.5-4.0 LVOT Diameter 2.2 cm LV Mass (2D Cubed) 223.73 g 88.00-224.00 LV Mass Index (2D Cubed) 98 g/m2 49-115 Relative Wall Thickness (2D) 0.28 LV Fractional Shortening/Ejection Fraction 2D/MM LV Fractional Shortening (2D) 38 % 25-43 LV EF (2D Teicholz) 67 % 52-72 LV Diastolic Volume (4C MOD) 174 ml LV EF (4C MOD) 72 % LV Diastolic Volume (2C MOD) 144 ml LV EF (2C MOD) 61 % LV Diastolic Volume (BP MOD) 158 ml 62-150 LV Diastolic Volume Index (BP MOD) 69 ml/m2 34-74 LV Systolic Volume (BP MOD) 52 ml 21-61 LV Systolic Volume Index (BP MOD) 23 ml/m2 11-31 LV EF (BP MOD) 67 % 52-72 LV Diastolic Length (4C) 8.9 cm LV Systolic Length (4C) 6.9 cm LV Stroke Volume (4C MOD) 126 ml Atria Name Value Normal LA Dimensions LA Volume (4C A-L) 37 ml LA Volume (BP A-L) 47 ml RA Dimensions RA Area (4C) 14.0 cm2 <=18.0 Report Signatures
== END 2024-05-21 09:34 | disposition home or self-care (01) ==
LOC: ANHCARD 09:35
PROVIDERS: PCP Physician Assistant; Visit Provider Physician Assistant
DX: I37.1 Nonrheumatic pulmonary valve insufficiency (principal); G47.37 Central sleep apnea in conditions classified elsewhere
CPT/HCPCS: 93306

== ENCOUNTER 2024-05-26 14:55 | Outpatient (CLI) | payer BC, SELFPAY ==
--- NOTE | 2024-06-11 11:59 | P.SLEEP_ITS ---
Sleep Study Date of Study: 05/26/24 Ordering Provider: Joie Whitney, ALINE Interpreting Physician: Lindsay Cooper MD Sleep Study Type: CPAP Titration Height: 1.7 m Weight: 108.862 kg Body Mass Index: 37.5 Neck Circumference (inches): 18 [place]: 4 Reason for Sleep Study * 04/17/2024 home sleep testing showing severe obstructive sleep apnea, AHI 33.6, desaturation to 60%, and a central apnea index of 11.4. He sleep history is suggestive of restless legs syndrome. Ferritin was recommended. He also mentioned acting out his dreams. He returns for a CPAP titration Sleep History Riley Tesfaye III is a 39-year-old man diagnosed with obstructive sleep apnea on a home sleep test 04/17/2024; AHI of 33.6 with desaturation down to 60%. This is consistent with severe sleep apnea. The patient had a central apnea index of 11.4 which is elevated (normal < 5). His sleep history of taken from his 04/17/2024 home sleep test questionnaire. He has to loud snoring, excessive daytime sleepiness, breathing interruptions during sleep, trouble falling asleep and maintaining sleep as well as abnormal behaviors during sleep. The patient admits to having difficulty returning to sleep if he wakes up during the night. He denies taking any hypnotics her sedatives. He does feel anxious about sleep. He admits to feeling tired or fatigued during the day. He states that he feels non-refreshing sleep upon waking. He denies having the urge to fall asleep during the day. He denies feeling drowsy while driving. He does admit to choking or gasping during the night. He does have trouble breathing while on his back. He does wake up in the morning with a headache. He does admit to having a drier and pulverizer tender sore mouth/ throat in the morning. He denies nocturnal heartburn. He denies nocturia. He denies sleep paralysis, cataplexy and hypnagogic / hypnopompic hallucinations. He does admit to clenching and grinding his teeth. He denies kicking or jerking his legs excessively. He does have a restless feeling in his legs and he does have the urge to move his legs. The restless feeling gets better with activities and is worse with rest. The leg restlessness is worse in the evening and it does cause a disturbance in his sleep. Normal bedtime is 10:00 p.m. on work days and at 11:00 p.m. on his days off. It takes him 90 minutes to fall asleep on work days and 60 minutes to fall asleep on his days off. He typically gets 5 hours of sleep on work days and 6 hours of sleep on his days off. His sleep is not restorative on his days off. He denies taking any planned naps. He does act out his dreams and he has sleepwalked as an adult. He consumes 3-4 caffeinated beverages per day. He consumes more than 3 alcoholic beverages 1-2 times per week. He denies tobacco use. He denies exercising regularly. [facility] Past Medical History Medical History SLAP (superior glenoid labrum lesion) Right shoulder injury Rotator cuff tendinitis Subacromial bursitis History of nephrolithotomy with removal of calculi 2020 Psoriasis Kidney stones Cough Chest tightness Constipation Abdominal pain Right shoulder pain Vertigo Depression LAYLA (obstructive sleep apnea) Rheumatoid arthritis Anxiety Surgical History Surgical History H/O umbilical hernia repair 02/02/21 Repair incarcerated umbilical hernia with 6.6 cm Parietex underlay mesh History of back surgery cervical fusion of c3-c4-2007 Status post ear surgery Family History Family History Father Arthritis Mother Alcoholism Hypertension Rheumatoid arthritis Lupus Sibling Lung disease Unknown Allergy Social History Social History Smoking status: Never smoker Alcohol intake: current Drinks per week: 4 Substance use: never Substance use type: does not use Living arrangements: with family Occupation/Education: occupation 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- [employer] Gender identity (if verbalized by the patient): Male Spiritual care concerns: No Medications Home Medications ?Medication ?Instructions ?Recorded ?Confirmed ?Type bupropion HCl 150 mg tablet,12 hr 150 mg PO DAILY 12/03/20 04/04/21 History sustained-release (Wellbutrin SR) cetirizine 10 mg tablet (Zyrtec) 10 mg PO DAILY 04/04/21 04/04/21 History phentermine 37.5 mg tablet 37.5 mg PO DAILY 04/04/21 04/04/21 History meclizine 25 mg tablet 25 mg PO BID PRN dizziness 5 days 06/07/22 Rx #20 tabs ibuprofen 400 mg tablet 400 mg PO TID #14 tabs 03/03/23 Rx oxycodone-acetaminophen 5 mg-325 1 tablet PO Q6H PRN pain #10 tabs 03/03/23 Rx mg tablet (Percocet) Sleep Procedure A full CPAP polysomnogram using the [employer] multi-channel system recorded the standard physiologic parameters including EEG, EOG, submentalis EMG, anterior tibialis EMG, EKG, body position, nasal and oral airflow using nasal pressure sensor and thermistor. Respiratory parameters of chest and abdominal movements were recorded with Respiratory Inductance Plethysmography belts. Oxygen saturation was recorded by pulse oximetry. Video monitoring was also performed. Sleep stages, periodic limb movements, and EEG arousals were scored in 30 second epochs according to the criteria of the AASM Scoring Manual. The Apnea-Hypopnea Index was calculated using CMS guidelines for definition of hypopnea while scoring respiratory events. The patient took a sleep aid prior to arriving in the sleep lab The patient was started on CPAP using a medium ResMed in 30 I nasal mask and heated humidity, initial pressure was CPAP 5, titrated to 7 cm, 9 cm, 11 cm for comparison. The optimal pressure is 11 cm. On CPAP 11, the patient spent 93.5 minutes in bed, 10.5 minutes awake, 63 minutes in non-REM and 20 minutes in REM. The sleep efficiency was 88.8%. The residual apnea-hypopnea index was 6.5 and the mean saturation was 93%. Sleep Architecture The total recording time was 534.1 minutes. The total sleep time was 493.5 minutes. Sleep latency was 9.6 minutes. REM latency was 202.0 minutes. Sleep efficiency was 92.4%. The patient had 27 awakenings for an awakening index of 3.3. Wake after Sleep Onset time was 31.0 minutes. The patient spent 18.0 minutes, 3.6% of total sleep time in Stage N1. The patient spent 395.5 minutes, 80.1% in Stage N2. The patient spent 19.0 minutes, 3.9% in Stage N3. The patient spent 61.0 minutes, 12.4% in Stage REM. Respiratory Analysis The patient had 36 hypopneas, 2 obstructive apneas, 1 mixed apneas, and 3 central apneas for an overall Apnea Hypopnea Index of 5.0 events per hour. The REM Apnea Hypopnea Index was 21.6. The NREM Apnea Hypopnea Index was 2.6. The patient had a Central Apnea Hypopnea Index of 0.4. There were no Respiratory Effort Related Arousals. The Respiratory Disturbance Index is 6.6 events per hour. There was no evidence of Enrique-Farley Respirations. Arousals There were 85 total arousals for an arousal index of 10.3. There were 60 spontaneous arousals for an index of 7.3. There were 4 arousals due to respiratory events for an index of 0.5. There were 16 arousals due to periodic limb movements for an index of 1.9. There were 4 arousals due to isolated limb movements for an index of 0.5. Periodic Limb Movements The patient had 4 isolated limb movements with an index of 0.5. The patient had 96 periodic limb movements with index of 11.7. Patient had a total of 100 limb movements with a total limb movement index of 12.2. Oximetry Data The patient had an average oxygen saturation of 92.5% in sleep with a minimum oxygen saturation of 77% and a maximum oxygen saturation of 97%. The patient had 43 oxygen desaturations that were 4% or greater resulting in an Oxygen Desaturation Index of 5.2.? The patient spent 3.8 minutes, 0.7% of total sleep time with an oxygen saturation below 88%. Snoring Profile Snoring was mild, eliminated during the titration. Cardiac Profile The EKG showed normal sinus rhythm. The patient had an average pulse rate of 57.8 bpm with a minimum pulse rate of 46 bpm and a maximum pulse rate of 94 bpm. ?No arrhythmias noted. EEG Profile EEG was unremarkable, no evidence of seizures. Assessment and Plan Assessment and Plan (1) LAYLA (obstructive sleep apnea): Code(s): G47.33 - Obstructive sleep apnea (adult) (pediatric) Status: Acute Assessment and Plan: This CPAP titration on 05/26/2024 shows an optimal pressure of CPAP 11 cm using a medium ResMed AirFit in 30 I nasal mask with heated humidity. The patient had supine REM at this setting with residual apnea-hypopnea index of 6.5. He had el imination of central apneas during this study. The patient should be prescribed this ResMed equipment as well as tubing, filters and reservoir. This should be used with all episodes of sleep. Compliance should be reviewed within 31-90 days of starting therapy for usage greater than 4 hours per night greater than 70% of the nights. The patient should be asked about symptoms such as excessive daytime sleepiness, quality of sleep, decreased nocturia, increased mental functioning such as memory, mood, and concentration. He should also be asked about incidences of sleep walking. His sleep history suggested that he was acting our his dreams. No abnormal sleep activity was noted on this test. He also had history suggestive of restless legs syndrome. Clinical correlation is recommended. BMI is 37. Weight management is advised. Clinical data suggests that weight loss of 10% can reduce the severity of respiratory events and snoring and improve AHI by as much as 25%. Data The data obtained during this sleep study is adequate for interpretation. Certification This sleep study has been reviewed by a board certified sleep medicine physician.
[2024-07-02 13:50] VITALS: BMI 37.5
== END 2024-05-27 06:43 | disposition home or self-care (01) ==
LOC: ANHCSM 15:05
PROVIDERS: PCP Physician Assistant; Visit Provider Physician Assistant
DX: G47.33 Obstructive sleep apnea (adult) (pediatric) (principal)
CPT/HCPCS: 95811

== ENCOUNTER 2024-12-03 15:16 | Outpatient (CLI) | payer BC, SELFPAY ==
--- NOTE | ~2024-12-03 | CT_ITS ---
CT Scan of the Chest without Contrast: Clinical Indication: Dyspnea Technique: Contiguous sections were acquired throughout the chest without intravenous contrast. Dose reduction technique was used on this scan by utilizing automated exposure control and iterative recon struction technique. The dose-length product (DLP) was 537.89 mGy-cm. Findings: There is no evidence of any significant mediastinal, hilar or axillary lymphadenopathy. Large densely calcified lymph nodes are present at the AP window region. There is no evidence of pleural or pericardial effusion. 2 adjacent right lower lobe pulmonary nodules measuring 4 mm and 3 mm in size (axial image 44). Addit ional 5 mm right lower lobe pulmonary nodule present (axial image 47). Images through the upper abdomen reveal no abnormalities. Impression: Subcentimeter nodules in the right lower lobe, as detailed above. According to Fleischner Society cri teria, for a low-risk patient, no further follow-up required. For a high-risk patient, consider 12 mo nth follow-up CT. Reviewed, dictated and finalized at location . Impression: Subcentimeter nodules in the right lower lobe, as detailed above. According to Fleischner Society criteria, for a low-risk patient, no further follow-up requi red. For a high-risk patient, consider 12 month follow-up CT.
== END 2024-12-03 15:17 | disposition home or self-care (01) ==
LOC: GOSHIMG 15:17
PROVIDERS: PCP Physician Assistant; Visit Provider Physician Assistant
DX: R06.09 Other forms of dyspnea (principal); M06.9 Rheumatoid arthritis, unspecified; R91.8 Other nonspecific abnormal finding of lung field
CPT/HCPCS: 71250

== ENCOUNTER 2025-04-09 14:29 | Outpatient (CLI) | payer BC, SELFPAY ==
--- OUTSIDE RECORDS SUMMARY | 2009-10-14 05:15 | XMS_ITS | Continuity of Care Document ---
Author Organization Formerly [facility] Address [address] [place] [address] utive [facility] [address] [place] [address] Phone Care Team Providers Care Ap Processor Name Role Phone Maritza Balbuena Unavailable Unavailable Procedures Procedure Date Eye Exam, New Patient Advance Directives Directive Yes / No Effective Date File Name No Information Encounters Encounter Description Practice Location Reason(s) For Visit Diagnoses Date Provider Providers Copied on Encounter [facility], [id number] [place] [address] [address], [place], [place], [id number], [place] tel:[phone] [facility] [place] No Information [phone] Esha Salas. [address] , [address], [place], [address], [place]. tel:[phone] Family History Family Member Type Diagnosis Age At Onset No Information Payers Payer name Insurance type Covered democrat ID Authoriza tion(s) No Information Social History Type Description Quantity Date Captured Comments Sex Male Smoking Status No Information Chief Complaint And Reason For Visit No Information Reason For Referral Reason For Referral No Information History Of Present Illness Encounter Date Complaint History Of Prese nt Illness No Information Functional Status Date Functional Assessmen t No Information Instructions Date Instruction Additional Infor mation No Information Assessments Type Assessment Date No Information Patient Care Teams Name Effective Dates (start - stop) Status Members No Information
--- OUTSIDE RECORDS SUMMARY | 2017-09-20 04:00 | XMS_ITS | Continuity of Care Document ---
Author Organization [facility] Address [address] [place] [address] Phone Care Team Providers Care Undercover Agent Name Role Phone Vito Quinonez MD Unavailable Unavailable Allergies, Adverse Reactions, Alerts Substance Reaction Status Criticality No Known Allergies Active No Inform ation Medications Medication Instructions Dosage Effective Dates (start - stop) Status Comments Xhance 93 mcg/actuation breath activated aerosol spray 1 spray by intranasal route 2 times every day in each nostril 93 MCG - Active Advance Directives Directive Yes / No Effective Date File Name No Information Encounters Encounter Description Practice Location Reason(s) For Visit Diagnoses Date Provider Providers Copied on Encounter [facility], [address], [place], [place], [id number] , tel:[phone] [place] [facility] Seasonal allergic rhinitis due to pollenAllergic rhinitis due to Ukrainian house dust miteAllergic rhinitis due to animal hair and danderAllergy to cockroachesChronic recurrent sinusitis 8 Cristiano Padron. [address] [place] [address], [id number] , [place]. tel:[phone] Referring Provider: Joie Whitney, [facility] [facility] [address], [place], [address]. tel:[phone] Family History Family Member Type Diagnosis Age At Onset Sister Problem (finding) sarcoidosis Father Problem (finding) Allergies Mother Problem (finding) Allergies Father Problem (finding) asthma Mother Problem (finding) asthma Sister Problem (finding) Allergies Payers Payer name Insurance type Covered democrat ID Authoriza tion(s) [place] OUT OF [place] [id number] Social History Type Description Quantity Date Captured Comments Alcohol Use Details Unknown Caffeine Use Details Unknown Tobacco Use Status No Information Smoking Status Never smoker Sex Male Vital Signs Date / Time: Height Weight BMI Pulse Rate Blood Pressure Temperature Respiratory Rate Body Surface Area Head Circumference Head Circ. Percentile Wt./Ab. Percentile BMI percentile Pulse Ox Inhaled Ox 9:10 AM 65.00 in 100.244 kg (221.00 lbs) 36.7 8 kg/m eter (2) 62 /min 130/98 mm[Hg] Chief Complaint And Reason For Visit No [...]
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
--- NOTE | 2025-04-10 07:15 | WPDPFTINT ---
PFT Procedure Performed PFT Procedure Performed Spirometry with Pre/Post Bronchodilator Plethysmography (Lung Vol) Diffusing Cap (DLCO) Flow Vol Loop PFT Interpretation This is a pulmonary function test with pre and post-bronchodilator spirometry, plethysmography and diffusing capacity. The test was performed and results interpreted in accordance with the 2019 and 2005 ATS/ERS Task Force guidelines respectively using the Global Lung Function Initiative-2012 reference equations. Patient demonstrated good effort and cooperation. Reproducibility criteria were met. The quality of the pre bronchodilator spirometry maneuver was Grade A and post bronchodilator spirometry maneuver was Grade A. Findings: Spirometry: The contour the inspiratory and expiratory flow tracing are normal. The pre bronchodilator FVC is 3.97 L, 85% predicted. The pre bronchodilator FEV1 is 3.33 L, 88% predicted. The pre bronchodilator FEV1: FVC ratio is 84%. The post bronchodilator FVC is 4.12 L, representing a 4% increase. The post bronchodilator FEV1 is 3.58 L, representing a 7% increase. The post bronchodilator FEV1: FVC ratio is 87%. Plethysmography: The total lung capacity is 4.75 L, 75% predicted. The functional residual capacity is 1.09 L, 35% predicted. The residual volume is 0.78 L, 46% predicted. Diffusing capacity: The diffusing capacity unadjusted for hemoglobin and carboxyhemoglobin is 26.7, 85% predicted. The diffusing capacity adjusted for alveolar volume is 5.81, 116% predicted. Impression: The spirometry is normal without evidence of an obstructive abnormality. There is no significant improvement after inhaling a single dose of albuterol. The total lung capacity is normal with a decreased functional residual capacity and decreased residual volume. This is an abnormal but nonspecific lung volume pattern. The diffusing capacity is normal. There are no prior studies for comparison
== END 2025-04-09 14:30 | disposition home or self-care (01) ==
PROVIDERS: PCP Physician Assistant; Visit Provider Physician Assistant
DX: R06.09 Other forms of dyspnea (principal); M06.9 Rheumatoid arthritis, unspecified
CPT/HCPCS: 94060; 94726; 94729